=== PATIENT | female | born 1945 | race Caucasian/White ===

== ENCOUNTER 2018-07-14 17:34 | Inpatient (IN) | payer MEDICARE, MEDICAID ==
[~2018-07-14] VITALS: Ht 154.9 cm; Wt 91.7 kg
--- NOTE | ~2018-07-14 | EC ---
PATIENT:ASHLYN CABALLERO DATE OF SERVICE: 07/14/18 SEX: F MEDICAL RECORD: [id number] DATE OF : 49 LOCATION:[place] [address] AGE OF PATIENT: 73 ADMISSION DATE: 07/14/18 REFERRING PHYSICIAN: INTERPRETING PHYSICIAN: PAM VILLARREAL MD ECHOCARDIOGRAM REPORT ECHO CHARGES 4 ECHO COMPLETE Date: 07/15/18 CLINICAL DIAGNOSIS: AFIB ECHOCARDIOGRAPHIC MEASUREMENTS (adult normal given) AC root (d.<3.7cm) 3.4 cm LV Septum d (<1.2 cm> 1.1 cm Valve Excursion 1.4 cm LV Septum (systole) 1.3 cm Left Atria (s.<4.0cm> 3.1 cm LVPW d(<1.2cm) 0.9 cm RV (d.<2.3cm) 2.4 cm LVPW (sytole) 1.0 cm LV diastole(<5.6CM) 5.1 cm MV E-F(>70mm/sec) cm LV systole 4.1 cm LVOT Diameter 1.6 cm MV exc.(>10mm) cm Est.ejection fraction (50-75%) % DOPPLER: LVIT cm/sec A 86 cm/sec E 79 cm/sec LA cm/sec RVSP 28.1 mmHg LVOT 145 cm/sec AOP1/2T m/s Asc. Ao 232 cm/sec RVOT 102 cm/sec RA cm/sec PA 108 cm/sec AV Gradient Peak 21.5 mmHg AV Mean 14.9 mmHg AV Area 1.4 cm MV Gradient Peak 4.0 mmHg MV Mean 1.5 mmHg MV Area cm COMMENTS: Ply Splicer: Davy [place] Nailer Hand: 3 Dr. Galindo TAPE# PACS Pericardial Effusion N DATE OF SERVICE: Adequate 2D, color flow, Spectral Doppler, and M-Mode. LVH is present. LV internal dimensions are normal. Wall motion is normal. EF greater than or equal to 55%. Aortic valve is tricuspid. No evidence of stenosis by Doppler interrogation. Left atrium is normal. Mitral valve shows no prolapse. Trace MR. Right-sided chamber size is normal. Trace TR. TRANSINT:[id number] Voice Confirmation ID: [id number] DOCUMENT ID: [id number] ECHOCARDIOGRAM REPORT [id number] ASHLYN CABALLERO PAM VILLARREAL MD at 0843 CC: [id number] DICTATION DATE: 07/16/18 0959 INSPECTOR BALANCE BRIDGE: 07/16/18 1123 ADM IN [place] [id number] [place] [id number]
--- NOTE | ~2018-07-14 | HP ---
PATIENT: ASHLYN CABALLERO MEDICAL RECORD: [id number] ACCOUNT: [id number] LOCATION:[facility] FabrizioCV04 : 49 ADMISSION DATE: 07/14/18 PCP: No PCP HISTORY AND PHYSICAL EXAMINATION HISTORY OF PRESENT ILLNESS: A 73-year-old female transferred from outside hospital for higher level of care. She has a history of paroxysmal atrial fibrillation, presented to the ER main and was found to have atrial fibrillation with RVR, possible masses as well as pneumonitis, has been feeling poorly for the past by her report 10-14 days. She does have a history of atrial fibrillation as well as coronary artery disease, really no anginal type symptomatology. Also, on admission noted to be anemic. We are seeing her concerning her cardiovascular status. PAST MEDICAL HISTORY: Includes, 1. History of hypertension. 2. Hyperlipidemia. 3. Atrial fibrillation as described above. 4. Obstructive pulmonary disease. 5. Dyslipidemia. MEDICATIONS: Typically include HCTZ/triamterene 37.5/25, Ultram 50 q. 6 p.r.n., Rozerem 8 mg at bedtime, Neurontin 400 at bedtime, Xanax 1 mg p.o. t.i.d. p.r.n., Betapace 40 b.i.d., digoxin 0.125 every day, atorvastatin 40 every day, Plavix 75 every day, Zanaflex 2 mg t.i.d. ALLERGIES: No known drug allergies. REVIEW OF SYSTEMS: The patient reports easy bruising but reports no swollen glands. The patient reports no fever, no night sweats, no significant weight gain, no significant weight loss. No significant exercise tolerance. The patient reports no dry eyes, no irritation, no vision change. Patient reports no difficulty hearing and no ear pain. Patient reports no frequent nose bleeds or nose and sinus problems. Patient reports on arm pain on exertion. No shortness of breath while lying down. No history of heart murmur. Patient reports no cough, no wheezing or coughing up blood. Patient reports no abdominal pain, no vomiting. Normal appetite. No diarrhea and not vomiting blood. No nausea and no constipation. Patient reports no incontinence. No difficulty urinating. No hematuria. No increased frequency. Patient reports no muscle aches. No weakness, no arthralgias, no back pain. No swelling of the extremities. Patient reports no abnormal mole, no jaundice, no rashes. Reports no loss of consciousness. No weakness and no numbness. No seizures, dizziness, or headaches. The patient reports no depression, no sleep disturbance, feeling safe in a relationship and no alcohol abuse. Patient reports on fatigue. Reports no runny nose or sinus pressure. No itching, no hives, and no frequent sneezing. PHYSICAL EXAMINATION: GENERAL: Pleasant female, in no acute distress, appears comfortable. VITAL SIGNS: Blood pressure 131/65, pulse currently is sinus at 86. HEENT: Normocephalic, atraumatic. NECK: No bruits are noted. HEART: Regular, II/ systolic ejection murmur. LUNGS: Fairly good air excursion. ABDOMEN: Soft, nontender. HISTORY AND PHYSICAL [id number] ASHLYN CABALLERO EXTREMITIES: Pulses are preserved, 2+ with no edema. DIAGNOSTIC DATA: ECG showed nonspecific ST-T changes, could be digoxin effect. IMPRESSION: Atrial fibrillation, currently in sinus, underlying coronary artery disease; however, given anemia and atrial fibrillation with rapid ventricular response, tolerated quite well from a cardiovascular standpoint, will restart sotalol. Check echocardiographic study. Further recommendations based on above. TRANSINT:[id number] Voice Confirmation ID: [id number] DOCUMENT ID: [id number] PAM VILLARREAL MD at 0843 CC: [id number] DICTATION DATE: 07/15/18 1005 RADIO TIME BUYER: 07/15/18 1043 ADM IN [facility] [address] [place] [address]
--- NOTE | ~2018-07-14 | CN ---
PATIENT NAME:ASHLYN CABALLERO MEDICAL RECORD: [id number] : 49 LOCATION:[facility].2306 ADMIT DATE: 07/14/18 ACCOUNT: [id number] CONSULTING PHYSICIAN: CHI CHAPIN MD REFERRING PHYSICIAN: FELA ARZATE MD DATE OF CONSULTATION: 07/15/2018 CONSULT REQUESTING PHYSICIAN: Fela Arzate MD REASON FOR CONSULTATION: Acute hypoxic respiratory failure, bilateral pneumonia. HISTORY OF PRESENT ILLNESS: Ms. Caballero is a 73-year-old female who has pneumonia, almost 2 months. She has taken a few courses of antibiotic, but for the last few days, she has worsening shortness of breath and the patient came into the ER. In evaluation in the ER, she was found out she was in atrial fibrillation with RVR as well as her hematocrit was 22. The patient was put on 100% nonrebreather and admitted to the ICU. She denies any fever or any chills. There are no night sweats. The patient claims that whenever she has exposure to corn she will have symptoms like this and chest congestion. REVIEW OF SYSTEMS: As in history of present illness. PAST MEDICAL HISTORY: 1. Hypertension. 2. Coronary artery disease. 3. Atrial fibrillation. 4. History of pneumonia. PAST SURGICAL HISTORY: 1. She had cardiac catheterization and angioplasty in the past. 2. Cholecystectomy. 3. Appendectomy. 4. Hysterectomy. ALLERGIES: No known drug allergy. MEDICATIONS: On [facility] is reviewed. PERSONAL AND SOCIAL HISTORY: She never smoked, but she does have secondhand exposure to smoking. She is a nondrinker. FAMILY HISTORY: Noncontributory. PHYSICAL EXAMINATION: GENERAL: Now, the patient is lying comfortably in bed. She is not in acute distress. VITAL SIGNS: The blood pressure is 131/65, pulse is 67, respiration is 20, temperature is 98.4, SpO2 is 97% on oxymizer. HEENT: Conjunctivae are pale. Sclerae is not icteric. NECK: Supple, no JVD. CHEST: There are bilateral crackles, worse on the left than the right. There is no wheezing. HEART: Rate and rhythm is irregular. Normal heart sound. No murmur. ABDOMEN: Soft. Bowel sounds present. No hepatosplenomegaly. CONSULT REPORT [id number] ASHLYN CABALLERO RECTAL: Deferred. EXTREMITIES: No cyanosis, no clubbing, no pedal edema. SKIN: Warm, normal turgor. CENTRAL NERVOUS SYSTEM: The patient is awake and alert. There is no obvious cranial nerve abnormality. The gait was not tested. LABORATORY DATA: CBC: The WBC is 13.5, hemoglobin 7.4, hematocrit 22.2, the platelet count is 381. Chemistry: Sodium 135, potassium is 3.6, BUN is 28, creatinine 1.2, glucose 121. AST is 134, ALT is 57. CK is 268. Troponin is less than 0.01. ABG: The pH is 7.47, pCO2 is 26.6, the pO2 is 54. IMPRESSION: 1. Acute hypoxic respiratory failure. 2. Bilateral pneumonia, left upper lobe and lower lobe. 3. Right upper lobe; possible aspiration, possible obstructive cause. 4. Mediastinal lymphadenopathy. 5. Atrial fibrillation. 6. Acute anemia, possible gastrointestinal bleed loss. Positive D-dimer with a negative CTA of the chest. RECOMMENDATION: 1. Agree with transfusion. 2. Continue Zosyn and Levaquin. I will add vancomycin for MRSA. 3. Heart control per cardiology. 4. I will hold the Plavix. Fiberoptic bronchoscopy possibly on Tuesday. 5. Follow up on labs and chest radiograph. Dr. Arzate, thank you for involving me in the care of Ms. Caballero. The critical care time is 45 minutes. TRANSINT:[id number] Voice Confirmation ID: [id number] DOCUMENT ID: [id number] CHI CHAPIN MD CC: [id number] DICTATION DATE: 07/15/18 1549 SUPERVISOR CHANNEL PROCESS: 07/15/18 1733 ADM IN [facility] [address] [place] [address]
[2018-07-14] MEDS ORDERED: PROAIR HFA8.5 GM INH (17:42)
[2018-07-14] MEDS ORDERED: LIPITOR40 MG PO (17:43)
[2018-07-14] MEDS ORDERED: XANAX1 MG PO (17:43)
[2018-07-14] MEDS ORDERED: PLAVIX75 MG PO (17:44)
[2018-07-14] MEDS ORDERED: LANOXIN125 MCG PO (17:44)
[2018-07-14] MEDS ORDERED: GABAPENTIN100 MG PO ×3 (17:44→17:45)
[2018-07-14] MEDS ORDERED: BETAPACE 80 MG80 MG PO (17:46)
[2018-07-14] MEDS ORDERED: ROZEREM8 MG PO (17:46)
[2018-07-14] MEDS ORDERED: NITROSTAT0.4 MG SL (17:46)
[2018-07-14] MEDS ORDERED: ULTRAM50 MG PO (17:47)
[2018-07-14] MEDS ORDERED: ZANAFLEX4 MG PO (17:47)
[2018-07-14] MEDS ORDERED: DYAZIDE 37.5/251 CAP PO (17:48)
[2018-07-14 19:00] VITALS: BP 134/70
[2018-07-14 19:27] VITALS: BP 140/99
[2018-07-14 20:01] VITALS: BP 118/45
[2018-07-14 20:31] VITALS: BP 95/50
[2018-07-14 20:34] LABS: CREATINE KINASE 351 UL (21-215)
[2018-07-15] VITALS (21 sets, daily range): BP systolic 96–137; BP diastolic 47–77; BMI 39.6; BMI 39.5
[2018-07-15 05:15] LABS: BASOPHILS 0.2 % (0-2); EOSINOPHILS 0.3 % (0-7); HEMATOCRIT 22.2 % (36.0-48.0); IMMATURE GRANULOCYTES 2.2 % (0-5); LYMPHOCYTES 7.7 % (15-50); MCH 27.1 pg (26.0-34.0); MCHC 33.3 g/dL (31.0-37.0); MCV 81.3 fL (80.0-100.0); MONOCYTES 10.5 % (2-11); NEUTROPHILS 79.1 % (40-80); PLATELET COUNT 381 10x3/uL (130-400); RBC 2.73 10x6/uL (4.00-5.40); RDW 14.8 % (11.5-14.5); WBC 13.5 10x3/uL (4.8-10.8)
[2018-07-15 05:44] LABS: ALKALINE PHOSPHATASE 106 U/L (46-116); ALT (SGPT) 57 U/L (10-68); BILIRUBIN - TOTAL 1.76 mg/dL (0.2-1.3); CALC OSMOLALITY 276 mosm/kg (275-300); CALCIUM 7.7 mg/dL (8.5-10.1); CARBON DIOXIDE 21.8 mmol/L (21.0-32.0); CHLORIDE - SERUM 102 mmol/L (98-107); CKMB 1.2 U/L (0.0-3.6); CREATINE KINASE 268 UL (21-215); CREATININE - SERUM 1.2 mg/dL (0.6-1.3); GLUCOSE 121 mg/dL (74-106); POTASSIUM - SERUM 3.6 mmol/L (3.5-5.1); PROTEIN - SERUM 6.7 g/dL (6.4-8.2); SODIUM 135 mmol/L (136-145); UREA NITROGEN 28 mg/dL (7-18); eGFR NON AFRICAN AMERICAN 47 mL/min (90-120)
[2018-07-15 05:52] LABS: HEMOGLOBIN 7.4 g/dL (12-16)
[2018-07-15 05:53] LABS: ALBUMIN 1.6 g/dL (3.4-5.0); TROPONIN-I < 0.017 ng/mL (0.000-0.060)
[2018-07-15 23:26] LABS: MCH 28.3 pg (26.0-34.0); MCHC 34.4 g/dL (31.0-37.0); MCV 82.3 fL (80.0-100.0); MEAN PLATELET VOLUME 9.6 fL (7.4-10.4); RDW 14.9 % (11.5-14.5); WBC 13.9 10x3/uL (4.8-10.8)
[2018-07-15 23:38] LABS: HEMOGLOBIN 9.6 g/dL (12-16); RBC 3.39 10x6/uL (4.00-5.40)
[2018-07-15 23:39] LABS: HEMATOCRIT 27.9 % (36.0-48.0)
[2018-07-15 23:44] LABS: APTT 28.6 SECONDS (22.8-39.4); INR 1.1 (0.85-1.17); PROTIME 13.8 SECONDS (11.6-15.0)
[2018-07-16] VITALS (23 sets, daily range): BP systolic 107–135; BP diastolic 48–81; Ht 154.9 cm; Wt 91.7 kg
[2018-07-16 04:02] LABS: BASOPHILS 0.3 % (0-2); EOSINOPHILS 1.1 % (0-7); HEMATOCRIT 28.4 % (36.0-48.0); HEMOGLOBIN 9.8 g/dL (12-16); IMMATURE GRANULOCYTES 7.7 % (0-5); LYMPHOCYTES 8.3 % (15-50); MCH 28.2 pg (26.0-34.0); MCHC 34.5 g/dL (31.0-37.0); MCV 81.8 fL (80.0-100.0); MEAN PLATELET VOLUME 9.6 fL (7.4-10.4); MONOCYTES 7.5 % (2-11); NEUTROPHILS 75.1 % (40-80); PLATELET COUNT 365 10x3/uL (130-400); RBC 3.47 10x6/uL (4.00-5.40); RDW 14.8 % (11.5-14.5); WBC 14.7 10x3/uL (4.8-10.8)
[2018-07-16 04:22] LABS: ALBUMIN 1.4 g/dL (3.4-5.0); BILIRUBIN - TOTAL 1.61 mg/dL (0.2-1.3); CALCIUM 7.6 mg/dL (8.5-10.1); CARBON DIOXIDE 23.5 mmol/L (21.0-32.0); PROTEIN - SERUM 6.3 g/dL (6.4-8.2)
[2018-07-16 04:27] LABS: ANION GAP 13.5 mmol/L (8-16)
[2018-07-16 13:18] LABS: POTASSIUM - SERUM 3.2 mmol/L (3.5-5.1); VANCOMYCIN - TROUGH 5.9 ug/mL (10.0-20.0)
[2018-07-17] VITALS (24 sets, daily range): BP systolic 113–140; BP diastolic 53–86
[2018-07-17 00:32] LABS: HEMATOCRIT 29.3 % (36.0-48.0); HEMOGLOBIN 9.7 g/dL (12-16); MCH 27.7 pg (26.0-34.0); MCHC 33.1 g/dL (31.0-37.0); MCV 83.7 fL (80.0-100.0); MEAN PLATELET VOLUME 9.5 fL (7.4-10.4); RBC 3.5 10x6/uL (4.00-5.40); RDW 15.4 % (11.5-14.5); WBC 14.8 10x3/uL (4.8-10.8)
[2018-07-17 03:48] LABS: BASOPHILS 0.3 % (0-2); EOSINOPHILS 1.5 % (0-7); HEMATOCRIT 29.7 % (36.0-48.0); HEMOGLOBIN 9.9 g/dL (12-16); IMMATURE GRANULOCYTES 7.5 % (0-5); MCHC 33.3 g/dL (31.0-37.0); MCV 83.9 fL (80.0-100.0); MEAN PLATELET VOLUME 9.6 fL (7.4-10.4); MONOCYTES 6.3 % (2-11); NEUTROPHILS 74.4 % (40-80); PLATELET COUNT 390 10x3/uL (130-400); RBC 3.54 10x6/uL (4.00-5.40); RDW 15.5 % (11.5-14.5); WBC 14.3 10x3/uL (4.8-10.8)
[2018-07-17 04:06] LABS: ALBUMIN 1.3 g/dL (3.4-5.0); ANION GAP 11.3 mmol/L (8-16); BILIRUBIN - TOTAL 0.56 mg/dL (0.2-1.3); CALCIUM 7.7 mg/dL (8.5-10.1); CARBON DIOXIDE 26.1 mmol/L (21.0-32.0); POTASSIUM - SERUM 3.4 mmol/L (3.5-5.1); PROTEIN - SERUM 6.3 g/dL (6.4-8.2)
[2018-07-17 12:27] LABS: % SATURATION 22 % (15-55); IRON 25 ug/dl (35-150); TOTAL IRON BIND CAPACITY 109 ug/dl (260-445); UNSAT IRON BIND CAPACITY 84 ug/dl (150-375)
[2018-07-18] VITALS (19 sets, daily range): BP systolic 115–161; BP diastolic 74–101
[2018-07-18 00:57] LABS: HEMATOCRIT 28.4 % (36.0-48.0); HEMOGLOBIN 9.4 g/dL (12-16); MCHC 33.1 g/dL (31.0-37.0); MCV 84.5 fL (80.0-100.0); RBC 3.36 10x6/uL (4.00-5.40); RDW 15.7 % (11.5-14.5); WBC 12.7 10x3/uL (4.8-10.8)
[2018-07-18 02:46] LABS: CREATININE - URINE 20.1 mg/dL (30-125); PROTEIN - URINE 32.3 mg/dL (0.0-11.9)
[2018-07-18 03:45] LABS: BASOPHILS 0.2 % (0-2); EOSINOPHILS 1.6 % (0-7); HEMATOCRIT 28.8 % (36.0-48.0); HEMOGLOBIN 9.5 g/dL (12-16); IMMATURE GRANULOCYTES 9.6 % (0-5); LYMPHOCYTES 12.6 % (15-50); MCH 27.9 pg (26.0-34.0); MCV 84.7 fL (80.0-100.0); MEAN PLATELET VOLUME 9.4 fL (7.4-10.4); MONOCYTES 7.1 % (2-11); NEUTROPHILS 68.9 % (40-80); PLATELET COUNT 352 10x3/uL (130-400); RDW 15.7 % (11.5-14.5); WBC 12.8 10x3/uL (4.8-10.8)
[2018-07-18 04:04] LABS: ALBUMIN 1.2 g/dL (3.4-5.0); BILIRUBIN - TOTAL 0.47 mg/dL (0.2-1.3); CALCIUM 7.5 mg/dL (8.5-10.1); CARBON DIOXIDE 27.5 mmol/L (21.0-32.0); CREATININE - SERUM 0.9 mg/dL (0.6-1.3)
[2018-07-18 04:22] LABS: ANION GAP 8.6 mmol/L (8-16); POTASSIUM - SERUM 3.1 mmol/L (3.5-5.1)
[2018-07-19] VITALS (24 sets, daily range): BP systolic 135–167; BP diastolic 40–87
[2018-07-19 00:21] LABS: HEMATOCRIT 27.9 % (36.0-48.0); HEMOGLOBIN 9.2 g/dL (12-16); MCH 28.1 pg (26.0-34.0); MCV 85.3 fL (80.0-100.0); MEAN PLATELET VOLUME 8.4 fL (7.4-10.4); RBC 3.27 10x6/uL (4.00-5.40); WBC 10.5 10x3/uL (4.8-10.8)
[2018-07-19 06:51] LABS: BASOPHILS 0.2 % (0-2); EOSINOPHILS 1.7 % (0-7); HEMATOCRIT 28.6 % (36.0-48.0); HEMOGLOBIN 9.4 g/dL (12-16); LYMPHOCYTES 10.7 % (15-50); MCHC 32.9 g/dL (31.0-37.0); MCV 85.1 fL (80.0-100.0); MEAN PLATELET VOLUME 9.4 fL (7.4-10.4); NEUTROPHILS 72.4 % (40-80); PLATELET COUNT 338 10x3/uL (130-400); RBC 3.36 10x6/uL (4.00-5.40); RDW 16.1 % (11.5-14.5); WBC 11.2 10x3/uL (4.8-10.8)
[2018-07-19 07:05] LABS: ALBUMIN 1.2 g/dL (3.4-5.0); ALKALINE PHOSPHATASE 121 U/L (46-116); ALT (SGPT) 40 U/L (10-68); BILIRUBIN - TOTAL 0.43 mg/dL (0.2-1.3); CALC OSMOLALITY 290 mosm/kg (275-300); CARBON DIOXIDE 25.9 mmol/L (21.0-32.0); CHLORIDE - SERUM 109 mmol/L (98-107); CREATININE - SERUM 0.8 mg/dL (0.6-1.3); GLUCOSE 115 mg/dL (74-106); POTASSIUM - SERUM 3.4 mmol/L (3.5-5.1); PROTEIN - SERUM 5.8 g/dL (6.4-8.2); SODIUM 146 mmol/L (136-145); UREA NITROGEN 9 mg/dL (7-18); eGFR NON AFRICAN AMERICAN 75 mL/min (90-120)
[2018-07-19 08:54] LABS: INR 1.1 (0.85-1.17); PROTIME 13.8 SECONDS (11.6-15.0)
[2018-07-19 09:06] LABS: APTT 29.8 SECONDS (22.8-39.4)
[2018-07-19 17:33] LABS: PROTEIN - BODY FLUID 3.3 G/DL
[2018-07-19 19:43] LABS: MACROPHAGES BF 4 %; NEUT - BF 89 %
[2018-07-20] VITALS (28 sets, daily range): BP systolic 117–176; BP diastolic 54–84
[2018-07-20 07:14] LABS: BASOPHILS 0.2 % (0-2); EOSINOPHILS 1.4 % (0-7); HEMATOCRIT 29.5 % (36.0-48.0); HEMOGLOBIN 9.6 g/dL (12-16); IMMATURE GRANULOCYTES 5.5 % (0-5); LYMPHOCYTES 10.5 % (15-50); MCH 28.2 pg (26.0-34.0); MCHC 32.5 g/dL (31.0-37.0); MCV 86.5 fL (80.0-100.0); MEAN PLATELET VOLUME 9.2 fL (7.4-10.4); MONOCYTES 6.6 % (2-11); NEUTROPHILS 75.8 % (40-80); PLATELET COUNT 328 10x3/uL (130-400); RBC 3.41 10x6/uL (4.00-5.40); WBC 9.9 10x3/uL (4.8-10.8)
[2018-07-20 07:33] LABS: ALBUMIN 1.4 g/dL (3.4-5.0); ALKALINE PHOSPHATASE 113 U/L (46-116); ALT (SGPT) 34 U/L (10-68); BILIRUBIN - TOTAL 0.44 mg/dL (0.2-1.3); CALC OSMOLALITY 283 mosm/kg (275-300); CALCIUM 7.1 mg/dL (8.5-10.1); CHLORIDE - SERUM 109 mmol/L (98-107); CREATININE - SERUM 0.8 mg/dL (0.6-1.3); GLUCOSE 118 mg/dL (74-106); POTASSIUM - SERUM 3.5 mmol/L (3.5-5.1); PROTEIN - SERUM 6.1 g/dL (6.4-8.2); SODIUM 143 mmol/L (136-145); UREA NITROGEN 8 mg/dL (7-18); eGFR NON AFRICAN AMERICAN 75 mL/min (90-120)
[2018-07-21] VITALS (16 sets, daily range): BP systolic 117–168; BP diastolic 60–78
[2018-07-21 03:42] LABS: BASOPHILS 0.2 % (0-2); EOSINOPHILS 2.4 % (0-7); HEMATOCRIT 29.9 % (36.0-48.0); HEMOGLOBIN 9.7 g/dL (12-16); IMMATURE GRANULOCYTES 4.3 % (0-5); MCHC 32.4 g/dL (31.0-37.0); MCV 86.4 fL (80.0-100.0); MEAN PLATELET VOLUME 9.1 fL (7.4-10.4); MONOCYTES 7.7 % (2-11); NEUTROPHILS 70.4 % (40-80); PLATELET COUNT 334 10x3/uL (130-400); RBC 3.46 10x6/uL (4.00-5.40); RDW 15.8 % (11.5-14.5); WBC 8.2 10x3/uL (4.8-10.8)
[2018-07-21 03:55] LABS: ALBUMIN 1.4 g/dL (3.4-5.0); ANION GAP 11.1 mmol/L (8-16); BILIRUBIN - TOTAL 0.38 mg/dL (0.2-1.3); CARBON DIOXIDE 27.2 mmol/L (21.0-32.0); CREATININE - SERUM 0.9 mg/dL (0.6-1.3); POTASSIUM - SERUM 3.3 mmol/L (3.5-5.1); PROTEIN - SERUM 5.9 g/dL (6.4-8.2)
[2018-07-21 03:57] LABS: CALCIUM 6.9 mg/dL (8.5-10.1)
[2018-07-21 13:17] LABS: FUNGUS STAIN Final report (())
[2018-07-21 19:10] LABS: ACID FAST SMEAR Negative (()); AFB SPECIMEN PROCESSING Not Indicated (())
[2018-07-22] VITALS: BP 145/73
[2018-07-22 06:08] LABS: CALC OSMOLALITY 285 mosm/kg (275-300); CALCIUM 7.2 mg/dL (8.5-10.1); CARBON DIOXIDE 26.5 mmol/L (21.0-32.0); CHLORIDE - SERUM 109 mmol/L (98-107); CREATININE - SERUM 0.7 mg/dL (0.6-1.3); GLUCOSE 114 mg/dL (74-106); PHOSPHOROUS 3.5 mg/dL (2.5-4.9); POTASSIUM - SERUM 3.1 mmol/L (3.5-5.1); SODIUM 144 mmol/L (136-145); UREA NITROGEN 8 mg/dL (7-18); eGFR NON AFRICAN AMERICAN 87 mL/min (90-120)
[2018-07-22 06:13] LABS: MAGNESIUM - SERUM 0.9 mg/dL (1.8-2.4)
[2018-07-22 09:35] VITALS: BP 161/80
[2018-07-22 11:55] VITALS: BP 149/68
[2018-07-22 15:34] VITALS: BP 150/74
[2018-07-22 20:00] VITALS: BP 160/69
[2018-07-22 20:07] LABS: ACID FAST SMEAR Negative (()); AFB SPECIMEN PROCESSING Concentration (())
[2018-07-23 04:00] VITALS: BP 139/68
[2018-07-23 06:42] LABS: BASOPHILS 0.4 % (0-2); EOSINOPHILS 3.2 % (0-7); HEMATOCRIT 30.1 % (36.0-48.0); HEMOGLOBIN 9.7 g/dL (12-16); IMMATURE GRANULOCYTES 1.9 % (0-5); MCHC 32.2 g/dL (31.0-37.0); MCV 86.7 fL (80.0-100.0); MEAN PLATELET VOLUME 9.2 fL (7.4-10.4); MONOCYTES 5.8 % (2-11); NEUTROPHILS 70.7 % (40-80); RBC 3.47 10x6/uL (4.00-5.40); RDW 15.8 % (11.5-14.5); WBC 7.6 10x3/uL (4.8-10.8)
[2018-07-23 06:51] LABS: PLATELET COUNT 408 10x3/uL (130-400)
[2018-07-23 07:16] LABS: ALBUMIN 1.7 g/dL (3.4-5.0); BILIRUBIN - TOTAL 0.4 mg/dL (0.2-1.3); CALCIUM 7.1 mg/dL (8.5-10.1); CARBON DIOXIDE 25.2 mmol/L (21.0-32.0); CREATININE - SERUM 0.9 mg/dL (0.6-1.3); POTASSIUM - SERUM 3.2 mmol/L (3.5-5.1); PROTEIN - SERUM 6.3 g/dL (6.4-8.2)
[2018-07-23 08:58] VITALS: BP 168/80
[2018-07-23 11:37] VITALS: BP 170/78
[2018-07-23 12:26] LABS: COLOR YELLOW (YELLOW)
[2018-07-23 12:27] LABS: APPEARANCE CLEAR (CLEAR); BILIRUBIN NEGATIVE (NEGATIVE); GLUCOSE NEGATIVE (NEGATIVE); KETONE NEGATIVE (NEGATIVE); NITRITE NEGATIVE (NEGATIVE); PROTEIN NEGATIVE (NEGATIVE); UROBILINOGEN NORMAL (NORMAL)
[2018-07-23 12:28] LABS: BACTERIA NONE SEEN /hpf (NONE SEEN); EPITHELIAL CELLS 0-5 /hpf (0-5); WHITE CELLS - URINE 0-5 /hpf (0-5)
[2018-07-23 16:02] VITALS: BP 149/78
[2018-07-23 20:30] VITALS: BP 138/58
[2018-07-24 04:30] VITALS: BP 139/62
[2018-07-24 06:27] LABS: BASOPHILS 0.6 % (0-2); EOSINOPHILS 2.1 % (0-7); HEMATOCRIT 28.8 % (36.0-48.0); HEMOGLOBIN 9.1 g/dL (12-16); LYMPHOCYTES 24.1 % (15-50); MCH 27.5 pg (26.0-34.0); MCHC 31.6 g/dL (31.0-37.0); MEAN PLATELET VOLUME 9.1 fL (7.4-10.4); MONOCYTES 6.3 % (2-11); NEUTROPHILS 65.9 % (40-80); PLATELET COUNT 383 10x3/uL (130-400); RBC 3.31 10x6/uL (4.00-5.40); WBC 7.1 10x3/uL (4.8-10.8)
[2018-07-24 06:51] LABS: ALBUMIN 1.8 g/dL (3.4-5.0); ANION GAP 14.5 mmol/L (8-16); BILIRUBIN - TOTAL 0.32 mg/dL (0.2-1.3); CARBON DIOXIDE 24.2 mmol/L (21.0-32.0); CREATININE - SERUM 0.9 mg/dL (0.6-1.3); MAGNESIUM - SERUM 1.3 mg/dL (1.8-2.4); POTASSIUM - SERUM 3.7 mmol/L (3.5-5.1); PROTEIN - SERUM 5.5 g/dL (6.4-8.2)
[2018-07-24 08:58] VITALS: BP 170/79
[2018-07-24 11:14] LABS: FUNGUS STAIN Final report (())
[2018-07-24 12:02] VITALS: BP 148/67
[2018-07-24 16:30] VITALS: BP 156/67
[2018-07-24 21:09] VITALS: BP 171/77
[2018-07-25 00:03] VITALS: BP 157/74
[2018-07-25 06:07] VITALS: BP 184/86
[2018-07-25 06:58] LABS: BASOPHILS 0.9 % (0-2); EOSINOPHILS 3.1 % (0-7); HEMATOCRIT 30.9 % (36.0-48.0); HEMOGLOBIN 9.7 g/dL (12-16); IMMATURE GRANULOCYTES 1.2 % (0-5); LYMPHOCYTES 21.2 % (15-50); MCH 27.5 pg (26.0-34.0); MCHC 31.4 g/dL (31.0-37.0); MCV 87.5 fL (80.0-100.0); MEAN PLATELET VOLUME 9.2 fL (7.4-10.4); MONOCYTES 8.6 % (2-11); PLATELET COUNT 446 10x3/uL (130-400); RBC 3.53 10x6/uL (4.00-5.40); RDW 15.9 % (11.5-14.5); WBC 6.7 10x3/uL (4.8-10.8)
[2018-07-25 07:11] LABS: ANION GAP 11.5 mmol/L (8-16); BILIRUBIN - TOTAL 0.37 mg/dL (0.2-1.3); CALCIUM 7.9 mg/dL (8.5-10.1); CARBON DIOXIDE 25.8 mmol/L (21.0-32.0); CREATININE - SERUM 0.9 mg/dL (0.6-1.3); MAGNESIUM - SERUM 1.4 mg/dL (1.8-2.4); POTASSIUM - SERUM 3.3 mmol/L (3.5-5.1); PROTEIN - SERUM 6.4 g/dL (6.4-8.2)
[2018-07-25 08:26] VITALS: BP 163/68
[2018-07-25 12:03] VITALS: BP 166/76
[2018-07-25 15:59] VITALS: BP 144/74
[2018-07-25 20:00] VITALS: BP 149/75
[2018-07-26] VITALS: BP 146/80
[2018-07-26 05:40] LABS: EOSINOPHILS 3.8 % (0-7); HEMATOCRIT 30.2 % (36.0-48.0); HEMOGLOBIN 9.5 g/dL (12-16); IMMATURE GRANULOCYTES 0.7 % (0-5); LYMPHOCYTES 35.8 % (15-50); MCH 27.5 pg (26.0-34.0); MCHC 31.5 g/dL (31.0-37.0); MCV 87.3 fL (80.0-100.0); MEAN PLATELET VOLUME 8.9 fL (7.4-10.4); MONOCYTES 8.6 % (2-11); NEUTROPHILS 50.1 % (40-80); PLATELET COUNT 415 10x3/uL (130-400); RBC 3.46 10x6/uL (4.00-5.40); RDW 15.8 % (11.5-14.5); WBC 6.1 10x3/uL (4.8-10.8)
[2018-07-26 06:18] LABS: ALBUMIN 2.1 g/dL (3.4-5.0); ALKALINE PHOSPHATASE 79 U/L (46-116); ALT (SGPT) 20 U/L (10-68); CALC OSMOLALITY 285 mosm/kg (275-300); CALCIUM 8.3 mg/dL (8.5-10.1); CARBON DIOXIDE 25.2 mmol/L (21.0-32.0); CHLORIDE - SERUM 109 mmol/L (98-107); CREATININE - SERUM 0.8 mg/dL (0.6-1.3); GLUCOSE 106 mg/dL (74-106); MAGNESIUM - SERUM 1.7 mg/dL (1.8-2.4); POTASSIUM - SERUM 3.7 mmol/L (3.5-5.1); PROTEIN - SERUM 6.5 g/dL (6.4-8.2); SODIUM 144 mmol/L (136-145); UREA NITROGEN 10 mg/dL (7-18); VANCOMYCIN - RANDOM 16.9 ug/mL (10.0-20.0); eGFR NON AFRICAN AMERICAN 75 mL/min (90-120)
[2018-07-26 07:44] VITALS: BP 145/65
[2018-07-26 10:58] VITALS: BP 135/77
[2018-07-26 11:23] LABS: FUNGUS MYCOLOGY CULTURE Preliminary report (())
[2018-07-26 11:23] LABS: FUNGUS CULTURE RESULT 1 Candida tropicalis (()); FUNGUS MYCOLOGY CULTURE Preliminary report (())
[2018-07-26 15:38] VITALS: BP 160/73
[2018-07-26 20:00] VITALS: BP 148/69
[2018-07-27 04:00] VITALS: BP 145/72
[2018-07-27 05:59] LABS: HEMATOCRIT 30.5 % (36.0-48.0); LYMPHOCYTES 40.2 % (15-50); MCH 27.9 pg (26.0-34.0); MCHC 32.8 g/dL (31.0-37.0); MCV 85.2 fL (80.0-100.0); MEAN PLATELET VOLUME 8.6 fL (7.4-10.4); NEUTROPHILS 44.6 % (40-80); PLATELET COUNT 469 10x3/uL (130-400); RBC 3.58 10x6/uL (4.00-5.40); RDW 15.2 % (11.5-14.5); WBC 6.4 10x3/uL (4.8-10.8)
[2018-07-27 06:01] LABS: ALBUMIN 2.3 g/dL (3.4-5.0); ANION GAP 13.7 mmol/L (8-16); BILIRUBIN - TOTAL 0.3 mg/dL (0.2-1.3); CALCIUM 8.5 mg/dL (8.5-10.1); CARBON DIOXIDE 25.9 mmol/L (21.0-32.0); CREATININE - SERUM 0.9 mg/dL (0.6-1.3); MAGNESIUM - SERUM 1.3 mg/dL (1.8-2.4); POTASSIUM - SERUM 3.6 mmol/L (3.5-5.1); PROTEIN - SERUM 6.7 g/dL (6.4-8.2)
[2018-07-27 07:44] VITALS: BP 133/58
[2018-07-27] MEDS ORDERED: VIBRAMYCIN 100100 MG PO (10:41)
[2018-07-27] MEDS ORDERED: VASOTEC2.5 MG PO (10:44)
[2018-07-27] MEDS ORDERED: ELIQUIS5 MG PO (10:45)
[2018-07-27] MEDS ORDERED: FLORAJEN3 CAPS460 MG PO (10:50)
[2018-07-27 11:16] VITALS: BP 134/66
== END 2018-07-27 12:45 | disposition home or self-care (01) | DRG 177 ==
LOC: D.ER 17:34 → D.ICU 20:08 → D.CVICU 20:08 → D.M2 20:08 → D.ICU 22:45 → D.SDCHOLD 07-16 13:21 → D.CVICU 07-19 09:50 → D.M2 07-21 16:02
PROVIDERS: Family Medicine; Internal Medicine Nephrology; Internal Medicine Pulmonary Disease
PROC: 0W9B3ZZ Drainage of Left Pleural Cavity, Percutaneous Approach (ICD-10-PCS; 2018-07-19)
PROC: 0B998ZZ Drainage of Lingula Bronchus, Via Natural or Artificial Opening Endoscopic (ICD-10-PCS; principal; 2018-07-20)
PROC: 0B988ZZ Drainage of Left Upper Lobe Bronchus, Via Natural or Artificial Opening Endoscopic (ICD-10-PCS; 2018-07-20)
PROC: 0B9B8ZZ Drainage of Left Lower Lobe Bronchus, Via Natural or Artificial Opening Endoscopic (ICD-10-PCS; 2018-07-20)
DX: J15.211 Pneumonia due to Methicillin susceptible Staphylococcus aureus (principal); J96.01 Acute respiratory failure with hypoxia; E43 Unspecified severe protein-calorie malnutrition; I82.402 Acute embolism and thrombosis of unspecified deep veins of left lower extremity; J90 Pleural effusion, not elsewhere classified; J44.0 Chronic obstructive pulmonary disease with (acute) lower respiratory infection; I48.91 Unspecified atrial fibrillation; J44.9 Chronic obstructive pulmonary disease, unspecified; D50.9 Iron deficiency anemia, unspecified; E87.6 Hypokalemia; E78.5 Hyperlipidemia, unspecified; I25.10 Atherosclerotic heart disease of native coronary artery without angina pectoris; R80.9 Proteinuria, unspecified; R91.8 Other nonspecific abnormal finding of lung field; R04.0 Epistaxis; R80.8 Other proteinuria; Z68.39 Body mass index [BMI] 39.0-39.9, adult; I10 Essential (primary) hypertension

== ENCOUNTER → 2018-09-21 11:40 | Outpatient (CLI) | payer MEDICARE, MEDICAID ==
[~2018-09-21] VITALS: Ht 154.9 cm; Wt 88.6 kg
--- NOTE | ~2018-09-21 | HEMODYNAMI ---
PATIENT:ASHLYN CABALLERO MEDICAL RECORD: [id number] : 49 LOCATION:[facility] ADMISSION DATE: 09/21/18 Generatedon:09/21/201814:22 Patient name: ASHLYN CABALLERO Patient #: [id number] SSN: : 1945 Date of study: 09/21/2018 Page: Of Hemodynamic Procedure Report Patient Data Patient Demographics Procedure consent was obtained First Name: ASHLYN Gender: Female Last Name: FEDERICO : 1945 [facility] Initial: JAMES Age: 73 year(s) Patient #: [id number] Race: Unknown Additional ID: [id number] Contact details Address: [place] [address] State: [place] City: [place] Zip code: [address] Past Medical History Allergies Allergen Reaction Date Comments Reported Other allergy 09/21/2018 CELEBREX, CYMBALTA, DICLOFENAC, MIRAPEX Admission Admission Data Admission Date: 09/21/2018 Admission Time: 11:40 Height (in.): 61 BSA: 1.87 (m2) Height (cm.): 154.94 BMI: 36.84 (kg/m2) Weight (lbs.): 195 Weight (kg.): 88.45 Lab Results Lab Result Date: 09/21/2018 Lab Result Time: 0:00 Biochemistry Name Units Result Min Max BUN mg/dl 15 --(--*-)-- 7 18 Creatinine mg/dl 0.8 --(-*--)-- 0.6 1.3 CBC Name Units Result Min Max Hemoglobin g/dl 10.9 *-(----)-- 13.5 17.5 Procedure Procedure Types Cath Procedure Diagnostic Procedure C [facility] w/Coronaries PCI Procedure PTCA PTCA Initial Procedure Description Procedure Date Procedure Date: 09/21/2018 Procedure Start Time: 14:04 Procedure End Time: 14:19 Procedure Staff Name Function Brendan Wagoner MD Performing Physician Ariel Mejia RT Monitor Evangelina Verduzco RT Sariah Ledezma RN Nurse Procedure Data Cath Procedure Fluoroscopy Diagnostic fluoroscopy Total fluoroscopy Time: 2.5 time: 2.5 min min Diagnostic fluoroscopy Total fluoroscopy dose: 267 dose: 267 mGy mGy Contrast Material Contrast Material Type Amount (ml) Isovue 300 52 Entry Location Entry Primary Successful Side Size Upsize Upsize Entry Closure Succes sful Closure Location (Fr) 1 (Fr) 2 (Fr) Remarks Device Remarks Femoral Right 5 Fr 6 Fr Exoseal artery Short Estimated blood loss: 10 ml Diagnostic catheters Device Type Used For End Catheter Placement MULTIPACK JL 4.0 5Fr Procedure catheter MULTIPACK 3DRC 5Fr Procedure catheter MULTIPACK Pigtail 5 Fr Procedure catheter Procedure Complications No complications Procedure Medications Medication Administration Route Dosage 0.9% NaCl I.V. 100 ml/hr Oxygen etCO2 Nasal cannula 2 l/min Lidocaine 2% added to field 20 Heparin Flush Bag added to field 2 bags (1000units/500ml NS) Plavix P.O. 75 mg Versed I.V. 2 mg Fentanyl I.V. 50 mcg Versed I.V. 1 mg Fentanyl I.V. 25 mcg Heparin Bolus 4000 units Hemodynamics Rest BSA: 1.87 (m2) HGB: 10.9 (g/dl) O2 Consumption: Estimated: 162.55 (ml/min) O2 Co nsumption indexed: Estimated:86.93 (ml/min/m) Heart Rate: 57 (bpm) Pressure Samples Time Site Value (mmHg) Purpose Heart Use Rate(bpm) 14:09 LV 176/10,14 Snapshot 59 14:10 AO 185/76(117) Pullback 58 14:10 LV 170/9,12 Pullback 58 Gradients Valve Time Site 1 Site 2 Mean SEP/DFP Peak To Heart Use (mmHg) (sec/min) Peak Rate (mmHg) (bpm) Aortic 14:10 LV AO 0 7 0 58 170/9,12 185/76(117) Calculations Valve P-P Mean Valve Index Valve Source Name Gradient Area Flow (cm2) Aortic 0 0 0 0 Snapshots Pre Cath Intra NCS Post Cath Vital Signs Time Heart Resp SPO2 etCO2 NIBP (mmHg) Rhythm Pain Sedation Rate (ipm) (%) (mmHg) Status Level (bpm) 14:02:16 61 11 98 36.3 200/94(150) NSR 0 (11) 10(A) , No pain 14:04:50 56 15 100 37 198/82(143) NSR 0 (11) 10(A) , No pain 14:09:53 58 16 100 177/80(114) NSR 0 (11) 10(A) , No pain 14:14:50 61 14 100 180/77(115) NSR 0 (11) 10(A) , No pain 14:19:45 59 12 99 178/93(143) NSR 0 (11) 10(A) , No pain Medications Time Medication Route Dose Verified Delivered Reason Notes Effectiveness by by 13:37:59 0.9% NaCl I.V. 100 Brendan Shannan used for ml/hr [place] procedure MD DRIVER 13:38:06 Oxygen etCO2 2 Brendan Shannan used for Nasal l/min [facility] procedure cannula MD DRIVER 13:38:12 Lidocaine 2% added 20ml Brendan Brendan for local to vial [facility] anesthetic field MD [place] 13:38:17 Heparin Flush added 2 Brendan Brendan used for Bag to bags [facility] procedure (1000units/500ml field MD [place] NS) 13:54:22 Plavix P.O. 75 mg Brendan Shannan for [place] antiplatelet RN therapy 14:04:26 Versed I.V. 2 mg Brendan Shannan for sedation [facility] Ledezma MD, RN 14:04:34 Fentanyl I.V. 50 Brendan Shannan for sedation mcg [facility] Ledezma MD, RN 14:10:25 Heparin Bolus 4000 Brendan Shannan for verif ied units [facility] anticoagulation with Dr. MD DRIVER [place] 14:12:17 Versed I.V. 1 mg Brendan Shannan for sedation [facility] Ledez[facility] MD, RN 14:12:22 Fentanyl I.V. 25 Brendan Shannan for sedation [facility] [place] [facility] Ledezma MD packer denture Log Time Note 13:37:19 Ariel Mejia RT(R) sent for patient. Start room use. 13:37:20 Time tracking: Regular hours (M-F 7:00 - 5:00) 13:37:24 Plan of Care:Hemodynamics will remain stable., Cardiac rhythm will remain stable., Comfort level will be maintained., Respiratory function will remain adequate., Patient/ family verbilizes understanding of procedure., Procedure tolerated without complication., Recovers from procedure without complications.. 13:37:32 H&P Date Dictated: 09/14/2018 Within 30 days and on chart., H&P Addendum completed by physician on day of procedure. (MUST COMPLETE FOR ALL OUTPATIENTS). 13:37:59 0.9% NaCl 100 ml/hr I.V. was administered by Shannan Ledezma RN; used for procedure; 13:38:06 Oxygen 2 l/min etCO2 Nasal cannula was administered by Shannan Ledezma RN; used for procedure; 13:38:12 Lidocaine 2% 20ml vial added to field was administered by Brendan Wagoner MD; for local anesthetic; 13:38:17 Heparin Flush Bag (1000units/500ml NS) 2 bags added to field was administered by Brendan Wagoner MD; used for procedure; 13:39:06 Patient allergic to Other allergyCELEBREX, CYMBALTA, DICLOFENAC, MIRAPEX 13:39:21 Patient Height : 61 inches 13:39:24 Patient Weight : 195 lbs 13:42:26 Lab Result : BUN 15 mg/dl 13:42:26 Lab Result : Hemoglobin 10.9 g/dl 13:42:26 Lab Result : Creatinine 0.8 mg/dl 13:43:24 Patient received from Pre/Post Procedure Room to CCL 1 Alert and oriented. Tansferred to table in Supine position. 13:43:25 Warm blankets applied, and regina hugger turned on for patient comfort. 13:43:26 Correct patient and procedure confirmed by team. 13:43:27 Signed procedure consent form obtained from patient. 13:43:28 ECG and BP/O2 sat monitors applied to patient. 13:54:22 Plavix 75 mg P.O. was administered by Shannan Ledezma RN; for antiplatelet therapy; 13:55:29 Vital chart was started 14:00:32 Baseline sample Acquired. 14:01:22 Rhythm: sinus rhythm 14:01:23 Full Disclosure recording started 14:01:24 Pre-procedure instructions explained to patient. 14:01:24 Pre-op teaching completed and patient verbalized understanding. 14:01:25 Family in waiting room. 14:01:27 Patient NPO since Breakfast. 14:02:50 Is the patient allergic to Iodine/contrast media? No. 14:02:52 Is patient on blood thinner?Yes 14:02:53 Patient diabetic? No. 14:02:55 Previous problem with sedation/anesthesia? No ? 14:02:56 Snore? Yes 14:02:57 Sleep apnea? Yes 14:02:58 Deviated septum? No 14:02:58 Opens mouth fully? Yes 14:02:59 Sticks out tongue? Yes 14:03:01 Airway obstruction? No ? 14:03:03 Dentures? No ? 14:03:05 Pre procedure: right dorsailis pedis pulse 2+ Normal; easily identifiable; not easily obliterated 14:03:07 Patient pain scale 0/10 ?. 14:03:11 IV patent on arrival in right forearm with 0.9% NaCl at [facility]. 14:03:13 Lab results completed and on chart. 14:03:16 Right groin area was prepped with chlora-prep and draped in sterile fashion 14:03:16 Alarms reviewed by R. N. 14:03:17 Sharps counted by scrub and verified by R.N. 14:03:18 Use device set Femoral Dx 14:03:19 ACIST Syringe (66994) opened to sterile field. 14:03:19 Bag Decanter (2002S) opened to sterile field. 14:03:20 Medline Cath Pack ([id number]) opened to sterile field. 14:03:21 ACIST Hand Control (89309) opened to sterile field. 14:03:21 ACIST Manifold (44155) opened to sterile field. 14:03:22 Tegaderm 4 x 4 (1626W) opened to sterile field. 14:03:24 SHEATH 5FR Sunny Side (UPC640) opened to sterile field. 14:03:26 DIAGNOSTIC Multipack 5Fr catheter set (CN1815) opened to sterile field. 14:03:27 DIAGNOSTIC WIRE .035 260cm J wire (888722) opened to sterile field. 14:03:33 Physician arrived 14:03:34 --------ALL STOP TIME OUT------ 14:03:34 Final Timeout: patient, procedure, and site verified with staff and physician. All members of the team are in agreement. 14:03:36 Right groin site verified by team. 14:03:38 Physical assessment completed. ASA score P 2 - A patient with mild systemic disease as per Brendan Wagoner MD. 14:03:41 Sedation plan: IV Moderate Sedation Medication:Versed, Fentanyl 14:04:26 Versed 2 mg I.V. was administered by Shannan Ledezma RN; for sedation; 14:04:34 Fentanyl 50 mcg I.V. was administered by Shannan Ledezma RN; for sedation; 14:04:47 Procedure started. 14:04:58 Local anesthetic to right femoral artery with Lidocaine 2% by Brendan Wagoner MD.INITIAL ACCESS ONLY 14:05:07 A 5 Fr sheath was inserted into the Right Femoral artery 14:05:38 Zero performed for pressure channel P1 14:05:42 Zero performed for pressure channel P1 14:05:45 Zero performed for pressure channel P1 14:05:47 Zero performed for pressure channel P1 14:05:50 Zero performed for pressure channel P1 14:05:52 Zero performed for pressure channel P1 14:06:02 Zero performed for pressure channel P1 14:06:05 Zero performed for pressure channel P1 14:06:11 Zero performed for pressure channel P1 14:07:12 A MULTIPACK JL 4.0 5Fr catheter was advanced over the wire and used for Procedure. 14:07:14 LCA angiography performed. 14:07:16 Catheter exchanged over wire. 14:07:21 A MULTIPACK 3DRC 5Fr catheter was advanced over the wire and used for Procedure. 14:07:33 Zero performed for pressure channel P1 14:07:36 Zero performed for pressure channel P1 14:08:09 RCA angiography performed. 14:08:11 Catheter exchanged over wire. 14:08:15 A MULTIPACK Pigtail 5 Fr catheter was advanced over the wire and used for Procedure. 14:08:22 Zero performed for pressure channel P1 14:09:00 Zero performed for pressure channel P1 14:09:53 etCO2 detector malfunction, MALINDA etCO2 at this time 14:10:23 Catheter removed. 14:10:25 Heparin Bolus 4000 units was administered by Shannan Ledezma RN; for anticoagulation; verified with Dr. Galindo 14:10:30 SHEATH 6FR Sunny Side (JIY449) opened to sterile field. 14:10:40 Sheath upsized to a 6 Fr Short. 14:12:17 Versed 1 mg I.V. was administered by Shannan Ledezma RN; for sedation; 14:12:22 Fentanyl 25 mcg I.V. was administered by Shannan [place] RN; for sedation; 14:13:24 GUIDE 6FR XB 3.5 catheter ([id number]) opened to sterile field. 14:13:34 INFLATOR Merit BasixCompak (QI3501) opened to sterile field. 14:13:34 WHISPER 300cm guide wire ([id number]) opened to sterile field. 14:13:46 6 Fr xb 3.5 guide catheter was inserted over the wire 14:13:51 whisper wire advanced. 14:15:00 Wire advanced across lesion. 14:15:56 Inflate balloon Inflation number: 1 A EMERGE OTW 3.5 x 15 balloon ([id number]) was prepped and advanced across the Mid LAD, then inflated to 10 OLIVERIO for 0:45 (min:sec). 14:16:29 Balloon removed over the wire. 14:16:33 Wire removed. 14:16:34 Guide catheter removed. 14:16:45 EXOSEAL 6Fr (EX600) opened to sterile field. 14:17:13 Sheath removed intact; hemostasis achieved with Exoseal to the Right Femoral artery. 14:17:15 Procedure ended.(Physican Out) 14:18:06 Fluoroscopy time 02.50 minutes. 14:18:11 Fluoroscopy dose: 267 mGy 14:18:11 Flurop Dose total: 267 14:18:15 Contrast amount:Isovue 300 52ml. 14:18:16 Sharps counted by scrub and verified by R.N. 14:18:18 Insertion/operative site no bleeding no hematoma. 14:18:22 Post-op/insertion site Right Femoral artery dressed using a 4 x 4 and Tegaderm. 14:18:28 Post right femoral artery:stable, soft, clean and dry 14:18:31 Post Procedure Pulses reassessed and unchanged 14:18:33 Post-procedure physical assessment completed. ASA score P 2 - A patient with mild systemic disease as per Brendan Wagoner MD. 14:18:36 Post procedure rhythm: unchanged. 14:18:39 Estimated blood loss: 10 ml 14:18:40 Post procedure instruction explained to patient.Patient verbalizes understanding. 14:18:41 Patient needs reinforcement of post procedure teaching. 14:18:52 Procedure type changed to Cath procedure, Diagnostic procedure, LHC, LHC w/Coronaries, PCI procedure, PTCA, PTCA Initial 14:19:21 Procedure and supply charges have been captured, reviewed, submitted and are correct. 14:19:27 Procedure Complication : No complications 14:19:29 Vital chart was stopped 14:19:29 See physician's report for complete and final results. 14:19:37 Report given to Pre/Post Procedure Room. 14:19:40 Patient transfered to Pre/Post Procedure Room with Stretcher. 14:19:44 Procedure ended. 14:19:44 Full Disclosure recording stopped 14:19:53 End room use (Document Last) Intervention Summary Intervention Notes Time ActionType Lesion and Equipment Action# Pressure Duration Attributes Used 14:15:56 Inflate Mid LAD EMERGE OTW 1 10 00:45 balloon 3.5 x 15 balloon ([id number]) Device Usage Item Name Manufacture Quantity Catalog Number Hospital Part Current Min imal Lot# / Charge Number Stock Stock Serial# Code ACIST Acist 1 89957 188106 433389 485162 20 Syringe Medical (01084) Systems Inc Bag Decanter Microtek 1 2001S 811808 53506 492213 5 (2001S) Medical Inc. Medline Cath Medline 1 [id number] 189134 80388 739929 5 Pack ([id number]) ACIST Hand Acist 1 74699 286283 948562 879205 5 Control Medical (18074) Systems Inc ACIST Acist 1 70551 489756 854020 628819 5 Manifold Medical (65683) Systems Inc Tegaderm 4 x 3M 1 1626W 062538 472697 245021 5 4 (1626W) SHEATH 5FR Terumo 1 AIK374 956722 067311 087425 40 Sunny Side (ZOR990) DIAGNOSTIC Cardinal 1 IF8124 391506 72299 597476 30 Multipack Health 5Fr catheter set (JB5672) DIAGNOSTIC St Mahesh 1 696054 226667 243246 450693 30 WIRE .035 260cm J wire (546306) MULTIPACK JL Cardinal 1 463470 5 4.0 5Fr Health catheter MULTIPACK Cardinal 1 504681 5 3DRC 5Fr Health catheter MULTIPACK Cardinal 1 138375 5 Pigtail 5 Fr Health catheter SHEATH 6FR Terumo 1 ECP762 085574 647355 924503 40 Sunny Side (OBE497) GUIDE 6FR XB Cardinal 1 [id number] 753477 797671 180966 2 3.5 catheter Health (53707249) INFLATOR Merit 1 SN3861 536025 731423 739237 15 Merit Medical BasixCompak (CH8181) WHISPER Alves 1 [id number] 060754 203630 801433 5 300cm guide Vascular wire (4094618SS) EMERGE OTW Jessie 1 [id number] 113646 724940 386192 5 [id number] 3.5 x 15 Scientific balloon ([id number]) EXOSEAL 6Fr Cardinal 1 EX600 409298 145359 039411 10 (EX600) Health Signature Audit [place] Stage Time Signature Unsigned Intra-Procedure 09/21/2018 Ariel Mejia 2:22:09 PM RT(R) Signatures Monitor : Ariel Mejia RT Signature : Date : Time : [place] [address] [place] [address]
--- NOTE | ~2018-09-21 | OP ---
PATIENT NAME: ASHLYN CABALLERO MEDICAL RECORD: [id number] :49 LOCATION:[facility] ADMISSION DATE: SURGEON: PAM VILLARREAL MD DATE OF OPERATION: 09/21/2018 PROCEDURES: Left heart catheterization, selective coronary angiography, right femoral artery approach. CATHETERS: A 5-Indonesian sheath, 5/4 left and right Angela, 5/4 pig. The procedure was well tolerated. The patient was returned to [facility]. Sheath was removed. ExoSeal device was placed. FINDINGS: Left ventriculography in 30-degree OSORIO view: Normal wall motion and normal systolic function. CORONARY ANATOMY: LEFT MAIN: Left main is free of disease. LAD: LAD at area of previous stenting shows discrete 80% stenosis in its midportion between takeoff of septal. CIRCUMFLEX: Free of disease. RIGHT CORONARY ARTERY: Dominant artery, gives rise to PDA, free of disease. IMPRESSION: Single vessel disease, restenosis of the LAD. PLAN: Intervention momentarily. DESCRIPTION OF PROCEDURE: A 5-Indonesian sheath was exchanged for a 6-Indonesian sheath. XB 3.5 guiding catheter provided excellent guide catheter support followed by 300-cm Whisper wire placed across the restenosis of LAD down this portion of vessel followed by 3.5 x 15-mm [place] balloon up to 14 atmospheres for 45 seconds. Final angiography shows excellent resolution of 85% stenosis with no significant residual. SHAMAR flow was 3 throughout the procedure. Integrilin was used in the case. The patient will be placed on Plavix. Sheath was closed with ExoSeal device. TRANSINT:[id number] Voice Confirmation ID: [id number] DOCUMENT ID: [id number] PAM VILLARREAL MD at 1407 CC: [id number] DICTATION DATE: 09/21/18 1423 HUMAN RESOURCES INTERN: 09/21/18 1732 DEP CLI 09/21/18 [place] [id number] [place] [id number]
[~2018-09-21 11:40] MED LIST: BETAPACE 80 MG80 MG PO; DYAZIDE 37.5/251 CAP PO; ELIQUIS5 MG PO; FLORAJEN3 CAPS460 MG PO; GABAPENTIN100 MG PO; LANOXIN125 MCG PO; LIPITOR40 MG PO; NITROSTAT0.4 MG SL; PLAVIX75 MG PO; PROAIR HFA8.5 GM INH; ROZEREM8 MG PO; ULTRAM50 MG PO; VASOTEC2.5 MG PO; VIBRAMYCIN 100100 MG PO; XANAX1 MG PO; ZANAFLEX4 MG PO
[2018-09-21 12:33] VITALS: BP 157/65; Ht 154.9 cm; Wt 88.6 kg
[2018-09-21 12:36] LABS: BASOPHILS 0.3 % (0-2); EOSINOPHILS 5.6 % (0-7); HEMATOCRIT 33.6 % (36.0-48.0); HEMOGLOBIN 10.9 g/dL (12-16); IMMATURE GRANULOCYTES 0.6 % (0-5); LYMPHOCYTES 32.4 % (15-50); MCH 27.9 pg (26.0-34.0); MCHC 32.4 g/dL (31.0-37.0); MCV 86.2 fL (80.0-100.0); MEAN PLATELET VOLUME 9.2 fL (7.4-10.4); MONOCYTES 8.6 % (2-11); NEUTROPHILS 52.5 % (40-80); RDW 14.2 % (11.5-14.5); WBC 8.9 10x3/uL (4.8-10.8)
[2018-09-21 12:45] LABS: PLATELET COUNT 302 10x3/uL (130-400)
[2018-09-21 12:50] LABS: CALC OSMOLALITY 279 mosm/kg (275-300); CALCIUM 8.9 mg/dL (8.5-10.1); CARBON DIOXIDE 28.5 mmol/L (21.0-32.0); CHLORIDE - SERUM 103 mmol/L (98-107); CREATININE - SERUM 0.8 mg/dL (0.6-1.3); GLUCOSE 100 mg/dL (74-106); POTASSIUM - SERUM 3.4 mmol/L (3.5-5.1); SODIUM 140 mmol/L (136-145); UREA NITROGEN 15 mg/dL (7-18); eGFR NON AFRICAN AMERICAN 75 mL/min (90-120)
== END | disposition home or self-care (01) ==
LOC: D.CATH 11:40
PROVIDERS: Internal Medicine Interventional Cardiology
DX: I25.119 Atherosclerotic heart disease of native coronary artery with unspecified angina pectoris (principal); T82.855A Stenosis of coronary artery stent, initial encounter; Z01.812 Encounter for preprocedural laboratory examination

== ENCOUNTER → 2018-10-23 10:04 | Outpatient (CLI) | payer MEDICARE ==
[2018-09-21 12:33] VITALS: BMI 36.9
== END | disposition home or self-care (01) ==
LOC: D.RT 10:00
DX: R59.0 Localized enlarged lymph nodes (principal); J96.01 Acute respiratory failure with hypoxia